=== PATIENT | male | born 1995 | race Caucasian/White ===

== ENCOUNTER → 2024-04-20 | Outpatient (CLI) | payer OTHER | LOC: M PLARAD 12:57 | PROVIDERS: ATTEND General Practice | DX: M54.12 Radiculopathy, cervical region (principal) ==

== ENCOUNTER → 2024-05-24 | Outpatient (CLI) | payer OTHER | LOC: M CARPUL 09:46 | PROVIDERS: ATTEND Student in an Organized Health Care Education/Training Program | DX: R06.02 Shortness of breath (principal) ==

== ENCOUNTER → 2024-06-28 | Outpatient (CLI) | payer OTHER ==
[~2024-06-28] MED LIST: METHACHOLINE KIT (6 VIAL.NEB PREMIX) INH ONE
== END ==
LOC: M CARPUL 15:21
PROVIDERS: ATTEND Student in an Organized Health Care Education/Training Program
DX: R06.00 Dyspnea, unspecified (principal)
CPT/HCPCS: 94070; J7674

== ENCOUNTER → 2024-08-25 | Outpatient (REF) | LOC: M PLAIMG 08:52 | PROVIDERS: ATTEND Internal Medicine | DX: M54.50 Low back pain, unspecified (principal) ==